=== PATIENT | female | born 1955 | race Caucasian/White ===

== ENCOUNTER → 2018-09-10 | Outpatient (CLI) | payer MEDICARE ==
--- NOTE | 2018-09-13 16:06 | MAM ---
EXAM DESCRIPTION: 3D Screening BILATERAL : Digital Mammography. CLINICAL HISTORY: 63 years Female ANNUAL SCREENING . No complaints or family history of breast cancer. Sister with breast cancer. No childbirth. Postmenopausal 20 years. No HRT since 2004. Prior benign cyst aspiration left breast. Lifetime risk of developing breast cancer (Tyrer-Cuzick model)(%): 14.9. COMPARISON: Baseline study at this facility.. No prior reports available. TECHNIQUE: Bilateral CC and MLO projection full-field images, digital tomosynthesis mammographic technique. Bilateral digital 2-D full-field MLO images. CAD not available for tomosynthesis or 2-D images. Technical limitations of the right MLO tomosynthesis view due to patient's lack of range of motion. FINDINGS: The breast parenchymal density pattern is: Scattered areas of fibroglandular density No skin thickening or nipple retraction. Bilateral solitary microcalcifications. Coarse calcification retroareolar right breast. Mass density posterior third right breast 10 cm from the nipple 6:00 position. No microcalcifications. Focal asymmetry 6:00 position anterior third left breast 4 cm from the nipple. Not associated with microcalcifications. IMPRESSION: BI-RADS CATEGORY: 0 - INCOMPLETE- Need additional imaging evaluation. FOLLOW-UP: Recall for additional imaging: Repeat MLO tomosynthesis right breast (not a diagnostic examination). Bilateral targeted breast ultrasound of the regions of interest...diagnostic tomosynthesis bilateral full-field orthogonal images if indicated by ultrasound. Written communication concerning the IMPRESSION and Follow-up, will be mailed to the patient and referring health care provider. Electronically signed by: Pedro Gates MD 09/13/2018 4:04 PM PARARESCUE MANAGER
== END ==
LOC: MAMMO 09:36
PROVIDERS: ATTEND General Practice
DX: Z12.31 Encounter for screening mammogram for malignant neoplasm of breast (principal)

== ENCOUNTER → 2018-09-15 | Outpatient (CLI) | payer MEDICARE ==
--- NOTE | 2018-09-18 16:15 | US ---
EXAM DESCRIPTION: Breast,Bilateral: Ultrasound CLINICAL HISTORY: 63 yearsFemaleABNORMAL MAMMOGRAM. Mass density posterior third right breast at 6:00. Focal asymmetry 6:00 anterior left breast. COMPARISON: Digital screening tomosynthesis bilateral breasts 09/10/2018. TECHNIQUE: Transcutaneous scanning of the bilateral breasts utilizing mcclendon-scale and Doppler modes. Scanning performed by the revenue inspector ; observation by Dr. Gates. Diagnostic mammography was not performed. FINDINGS: Scanning of the right breast posterior third. Specifically 6:00 position 10 cm from the nipple. Mixed fibroglandular and fatty echotexture. No dominant solid mass or distinct cyst. No parenchymal edema or large calcifications. No overlying skin changes. Normal vascularity. Scanning of the left breast anterior third. Specifically at 5:00 - 7:00 position 4 cm from the nipple. Mixed fibroglandular and fatty echotexture. No dominant solid mass or distinct cyst. No parenchymal edema or large calcifications. Overlying skin changes. Normal vascularity. IMPRESSION: Benign exam. BIRAD CATEGORY: 2 BENIGN FINDINGS. RECOMMENDATIONS: FOLLOW UP: Return to routine digital bilateral mammographic screening, one year interval from September 2018. The FINDINGS and the FOLLOW-UP plan were reviewed in person with the patient after the examination. Written communication explaining the IMPRESSION and FOLLOW-UP will be mailed to the patient and referring care provider. According to the [employer], yearly mammograms are recommended starting at age 40 and continuing as long as a woman is in good health. Any breast change noted on a breast self-exam should be reported promptly to the patient's healthcare provider. Breast MRI is recommended for women with an approximately 20-25% or greater lifetime risk of breast cancer, including women with a strong family history of breast or ovarian cancer and women who have been treated for Hodgkin's disease. A negative mammographic report should not delay tissue diagnosis in patients with significant clinical history or physical findings. Extremely dense breast tissue limits the sensitivity of digital mammography. Electronically signed by: Pedro Gates MD 09/18/2018 4:[address] [facility]
== END ==
LOC: MAMMO 11:18
PROVIDERS: ATTEND General Practice
DX: R92.8 Other abnormal and inconclusive findings on diagnostic imaging of breast (principal)